=== PATIENT | male | born 1995 | race American Indian/Alaskan Native ===

== ENCOUNTER 2017-03-07 01:38 | Emergency (ER) | payer OTHER ==
[2017-03-07 03:21] LABS: Alanine Aminotransferase 17 units/L (7-56); Albumin 4.3 g/dL (3.9-5); Albumin/Globulin Ratio 1.2 %; Alkaline Phosphatase 99 units/L (35-129); Anion Gap 18 mmol/L; BUN/Creatinine Ratio 13.75; Blood Urea Nitrogen 11 mg/dL (9-20); Calcium 9.5 mg/dL (8.4-10.2); Carbon Dioxide 24 mmol/L (22-30); Glucose 88 mg/dL (75-100); Lipase 14 units/L (13-60); Sodium 142 mmol/L (137-145); Total Protein 7.8 g/dL (6.3-8.2)
[2017-03-07 03:23] LABS: Basophils % (Auto) 0.2 % (0.0-1.8); Hematocrit 46.3 % (35.5-45.6); Hemoglobin 15.2 gm/dl (11.8-15.2); Mean Corpuscular HGB Conc 33 % (32-34); Mean Corpuscular Hemoglobin 27 pg (28-32); Mean Corpuscular Volume 83 fl (84-94); Platelet Count 260 K/mm3 (140-440); Red Blood Count 5.57 M/mm3 (3.65-5.03); Red Cell Distribution Width 13.8 % (13.2-15.2); White Blood Count 9.7 K/mm3 (4.5-11.0)
[2017-03-07 04:32] LABS: Bilirubin,Urine NEG (Negative); Blood,Urine SM (Negative); Ketones,Urine NEG (Negative); Leukocyte Esterase,Urine NEG (Negative); Mucus,Urine 3+ /HPF; Nitrite,Urine NEG (Negative); Protein,Urine <15 mg/dL mg/dL (Negative); Urobilinogen,Urine < 2.0 mg/dL (<2.0)
--- NOTE | 2017-03-07 09:55 | Emergency Department Report ---
HPI - General Chief Complaint: Abdominal Pain Time Seen by Provider: 03/07/17 09:27 - HPI HPI: This is a 21-year-old Afro-[place] male who presents to the emergency department from home with complaints of some intermittent pains to the right side of the groin, down the right leg and to the right lower abdomen that he has concern might be a hernia. He says this been going on for the past 3 months. He is currently asymptomatic without any pain, distention, swelling. He has not taken anything for symptoms prior to presentation. He says that he went to see a cloth shader, who is not his primary care physician, regarding the symptoms about 1.5 months ago and was told that it seem most likely to be a muscle strain. He denies any fever, back pain, nausea, vomiting, penile discharge. He says that every once in a while he will have some dysuria and some constipation but nothing current. No recent travel or sick contacts at home. ED Past Medical Hx - Past Medical History Previous Medical History?: No - Surgical History Past Surgical History?: No - Social History Smoking Status: Current Every Day Smoker Substance Use Type: Marijuana ED Review of Systems ROS: Stated complaint: ABDOMINAL PAIN Other details as noted in HPI Comment: All other systems reviewed and negative Constitutional: denies: chills, fever Eyes: denies: eye pain, eye discharge, vision change ENT: denies: ear pain, throat pain Respiratory: denies: cough, shortness of breath, wheezing Cardiovascular: denies: chest pain, palpitations Gastrointestinal: abdominal pain. denies: nausea, vomiting Genitourinary: denies: hematuria, discharge Musculoskeletal: denies: back pain, joint swelling, arthralgia Skin: denies: rash, lesions Neurological: denies: headache, weakness, paresthesias Physical Exam - Physical Exam Vital Signs: Vital Signs 03/07/17 03/07/17 02:39 05:50 Temperature 98.1 F 98.2 F Pulse Rate 56 L 70 Respiratory 18 100 H Rate Blood Pressure 116/67 114/63 O2 Sat by Pulse 100 Oximetry Physical Exam: GENERAL: The patient is well-developed well-nourished. HEENT: Normocephalic. Atraumatic. Extraocular motions are intact. Patient has moist mucous membranes. Pupils equal reactive to light bilaterally. NECK: Supple. Trachea is midline. CHEST/LUNGS: Clear to auscultation. There is no respiratory distress noted. HEART/CARDIOVASCULAR: Regular. There is no tachycardia. There is no gallop rub or murmur. ABDOMEN: Abdomen is soft, nontender. No guarding or rebound tenderness. No masses or hernia palpable. Patient has normal bowel sounds. There is no abdominal distention. SKIN: Skin is warm and dry. NEURO: The patient is awake, alert, and oriented. The patient is cooperative. The patient has no focal neurologic deficits. The patient has normal speech and gait. MUSCULOSKELETAL: There is no tenderness or deformity. There is no limitation range of motion. There is no evidence of acute injury. : Normal-appearing penis and scrotum/testicles. No tenderness palpation. No palpable inguinal hernia. ED Course Vital Signs 03/07/17 03/07/17 02:39 05:50 Temperature 98.1 F 98.2 F Pulse Rate 56 L 70 Respiratory 18 100 H Rate Blood Pressure 116/67 114/63 O2 Sat by Pulse 100 Oximetry ED Medical Decision Making - Lab Data Result diagrams: 03/07/17 02:49 03/07/17 02:49 - Radiology Data Radiology results: report reviewed, image reviewed interpreted by me: X-ray of the abdomen does not show any signs of obstruction or any acute process. Testicular ultrasound does not show any signs of torsion. There is a small left epididymal cyst. - Medical Decision Making 21-year-old male presents the emergency department with some intermittent pains to the right side of the groin and sometimes in the lower midabdomen. The patient was concerned for hernia but on physical exam there is no visible masses or swelling and there is no palpable hernia to the abdomen or the genital region. He also complains of some dysuria but a urinalysis does not show any signs of UTI. The rest the labs are unremarkable as well. Abdominal ultrasound does not show any signs of obstruction, air-fluid levels or any signs of significant acute process. A testicular/scrotal ultrasound was done that does not show any torsion, hernia or any significant process other than a small left epididymal cyst, which is most likely not the cause of his symptoms. However he does not appear to be in any acute distress. He will be discharged home with a referral for primary care. He'll be encouraged to return to the ER if any worsening of symptoms or any acute distress. The patient is currently asymptomatic. When he gets the abdominal pain he says it feels like it is just below the umbilicus. There are no peritoneal signs and he has low suspicion for any appendicitis. Vital signs stable including being afebrile. There is no leukocytosis. Patient is not complaining of any nausea or vomiting. - Differential Diagnosis testicular torsion, hernia, colitis, epididymitis, UTI Critical Care Time: No Critical care attestation.: If time is entered above; I have spent that time in minutes in the direct care of this critically ill patient, excluding procedure time. ED Disposition Clinical Impression: Right groin pain Abdominal pain Qualifiers: Abdominal location: lower abdomen, unspecified Qualified Code(s): R10.30 - Lower abdominal pain, unspecified Disposition: DISCHARGED TO HOME OR SELFCARE Is pt being admited?: No Condition: Good Instructions: Abdominal Pain (ED), Groin Pain (ED) Additional Instructions: Please follow-up with a primary care doctor in the next few days. Return to the emergency department with any worsening of your symptoms or any acute distress. Referrals: ADOLFO GARCIA MD [Primary Care Provider] - 3-5 Days SHANNON RUELAS MD [Staff Physician] - 3-5 Days [facility] [Outside] - 3-5 Days Time of Disposition: 11:19
--- NOTE | 2017-03-07 10:52 | XRay Report ---
ABDOMEN RADIOGRAPHS INDICATION: Abdominal pain. COMPARISON: None similar at this institution. FINDINGS: Frontal abdominal radiographs demonstrate nonobstructive bowel gas pattern. No focal suspicious calcifications, pneumatosis or pneumoperitoneum. Clear visualized lung bases. Age-appropriate, unremarkable bones. CONCLUSION: Normal exam, as described. Thank you for the opportunity to participate in this patient's care.
--- NOTE | 2017-03-07 11:12 | Ultrasound Report ---
Testicular sonogram: History: Groin pain. Findings: Right testis measures 3.1 x 1.7 x 3.1 cm. Uniform echogenicity with normal color flow. Normal epididymis. Left testis measures 4.1 x 2.1 x 2.9 cm. Uniform echogenicity normal color-flow. There is cyst noted the left epididymis measuring 1 x 0.6 x 0.7 cm. Small amount of fluid is noted in right scrotal sac. Impression: Cyst of the head of the left epididymis. Minimal fluid in the right scrotal sac.
[2017-03-07 11:35] VITALS: BP 112/76
== END 2017-03-07 11:37 | disposition home or self-care (01) ==
LOC: ED 01:38
DX: R10.30 Lower abdominal pain, unspecified (principal); F17.200 Nicotine dependence, unspecified, uncomplicated; F12.10 Cannabis abuse, uncomplicated
CPT/HCPCS: 36415; 74020; 80053; 81001; 83690; 85025; 93975; 99284